=== PATIENT | female | born 1945 | race Asian ===

== ENCOUNTER 2016-06-13 10:37 | Inpatient (IN) | payer OTHER ==
--- NOTE | ~2016-06-13 | CR63 ---
[facility] A Service of [facility] RADIOLOGY TEXT RESULTS PATIENT: SHON HOOKS LOCATION: [facility] : 44 UNIT #: [id number] AGE: [address]: Praful Morel MD SEX: F ORDER DR: [id number] [facility]. [place], [place] [address] [id number] E MR#: [id number] Acc #: [id number] NAME: SHON HOOKS : 1945 SEX: F STUDY DATE/TIME: 06/13/2016 11:14 UNIT: [facility] ROOM: STUDY DESCRIPTION: CR Chest 2 View Attending Physician: Praful Morel M.D. Ordering Physician: Praful Morel M.D. Primary Care Physician: No Primary Care Physician MEDICAL IMAGING REPORT This report is preliminary unless electronic signature is present EXAM Chest x-ray. HISTORY Cough, congestion, headache and sore throat for the past 3-4 days. COMPARISON 02/08/2014 TECHNIQUE Single AP view of the chest was obtained. FINDINGS Emphysematous changes are again noted. No focal infiltrates are seen to suggest pneumonia. No pleural fluid is noted. Heart size is upper limits of normal but unchanged. IMPRESSION Probable emphysema with mild interstitial fibrosis. No new infiltrates are seen since the previous exam. No active disease. Dictated by... Kevin Jean M.D. THIS IS AN ELECTRONICALLY VERIFIED REPORT Kevin Jean M.D. at 06/13/2016 4:29 PM RLF/itzel TD: 06/13/2016 12:17 JOB #: [id number] [facility] A Service [facility] RADIOLOGY TEXT RESULTS PATIENT: SHON HOOKS LOCATION: [facility] : 44 UNIT #: [id number] AGE: [address]: Praful Morel MD SEX: F ORDER DR: MEDICAL IMAGING REPORT Page 1 of 1 COPY
--- NOTE | ~2016-06-13 | OR ---
Unit #: [id number] #: [id number] Patient: SHON HOOKS [id number] [address] [address] [id number] I MR#: [id number] NAME: SHON HOOKS ROOM: 464 Date of Procedure: Admission Date: 06/13/2016 Surgeon: Anshu Castillo M.D. : 1945 Attending Physician: Augustina Olson M.D. Primary Care Physician: Amrita Primary Care Physician PROCEDURE OPERATIVE NOTE PROCEDURE PERFORMED Diagnostic bronchoscopy. INDICATIONS Pneumonia. PREPROCEDURE DIAGNOSIS Pneumonia. POSTPROCEDURE DIAGNOSIS Pneumonia. DETAIL OF PROCEDURE After taking consent from the patient explaining risks and benefits, patient placed in a proper position. Bronchoscope introduced through the oral cavity. Vocal cord appeared to be symmetrically moving toward the midline. Trachea was normal. Chelsie was sharp. We examined right upper, right middle, right lower lobe, left upper lobe, lingula, and left lower lobe. No endobronchial lesions were found. There were thick mucoid secretions in both lungs which were therapeutically suctioned. Then, we did a bronchoalveolar lavage in the right middle lobe area with 60 mL saline in and 20 mL back. Patient tolerated procedure very well. No complications happened. Dictated by... Jozef Ignacio TD: 06/15/2016 10:39 JOB #: [id number] Unit #: [id number] #: [id number] Patient: SHON HOOKS PROCEDURE OPERATIVE NOTE Page 1 of 1 X Anshu Castillo MD PROCEDURE OPERATIVE NOTE
--- NOTE | ~2016-06-13 | EKG ---
PATIENT: SHON HOOKS UNIT #: [id number] Ventricular Rate: 97 BPM Atrial Rate: 97 BPM P-R Interval: 180 ms QRS Duration: 82 ms Q-T Interval: 398 ms QTC Calculation(Bezet): 505 ms P [place]: 56 degrees Calculated R [place]: 73 degrees Calculated T [place]: 80 degrees Diagnosis Line: Sinus rhythm with occasional Premature ventricular Diagnosis Line: complexes Diagnosis Line: Nonspecific ST abnormality Diagnosis Line: Prolonged QT Diagnosis Line: Abnormal ECG Diagnosis Line: When compared with ECG of 10-FEB-2014 06:11, Diagnosis Line: Fusion complexes are no longer Present Diagnosis Line: Premature ventricular complexes are now Present Diagnosis Line: Vent. rate has increased BY 34 BPM Diagnosis Line: QT has lengthened Diagnosis Line: Confirmed by CHIDI CLIFTON MD ([id number]) on 06/13/2016 Diagnosis Line: 10:51:22 PM INTERPRETING MD: ETIENNE DAVIES
--- NOTE | ~2016-06-13 | HP ---
Unit #: [id number] #: [id number] Patient: SHON HOOKS [id number] [address] [place], [place] [address] [id number] I MR#: [id number] NAME: SHON HOOKS ROOM: 37806 Age: 71 Sex: F Admission Date: 06/13/2016 : 1945 Attending Physician: Augustina Olson M.D. Primary Care Physician: [facility] HISTORY AND PHYSICAL HISTORY OF PRESENT ILLNESS This is a 71-year-old female who was born in [facility], and does not speak Ecuadorean, was brought to the ER with a cough. History was obtained with help from patient's family member who speaks Ecuadorean. The patient was also accompanied by her ocvvwkcg-pu-tzn who takes care of her and speaks limited Ecuadorean. As per family, patient was in her usual state of health and was having shortness of breath for the past 10 days which was associated with a cough. As per family, patient was bringing up yellowish sputum, it was also associated with sore throat. The patient was also complaining of mild headache. As patient's condition did not improve, family brought patient to the hospital. The patient goes to [facility]. The patient did not call the primary care physician. No history of chest pain. Family is not sure about weight loss as they do not weigh the patient. Patient's fyxszgyp-iu-ejy states that patient is forgetful and does not eat much. Patient is not very ambulatory as per family. There is no history of rectal bleeding or black stools. There was no history of fever or chills. REVIEW OF SYSTEMS Unable to obtain complete review of systems secondary to language barriers. PAST MEDICAL HISTORY 1. Hypertension. 2. History of bronchial asthma. PAST SURGICAL HISTORY None. HOME MEDICATIONS None, as per family. ALLERGIES No known drug allergies. SOCIAL HISTORY Patient lives with her family. She apparently smoked cigarettes for many years and now for the last 4 years she is chewing tobacco. There is no history of drinking. FAMILY HISTORY Deny any history of significant illness in family. Unit #: [id number] #: [id number] Patient: SHON HOOKS PHYSICAL EXAMINATION VITAL SIGNS: Temperature 98 degrees, pulse 81 per minute, respiratory rate 16 per minute, blood pressure 137/73. GENERAL: The patient is lying comfortably in bed, is not in any obvious acute distress. She is not very verbal. HEENT: No conjunctival congestion. Sclerae nonicteric. NECK: Supple. Trachea central. LUNGS: Decreased breath sounds bilaterally. There are wheezes present. HEART: Regular rate and rhythm, S1, S2. ABDOMEN: Soft. Nontender. Bowel sounds are present. EXTREMITIES: Trace pedal edema. SKIN: Warm and dry. NEUROLOGIC: Patient able to move all extremities. DIAGNOSTIC STUDIES LABORATORY: Creatinine 0.5, sodium 142, potassium 3.1. WBC 9.4, hemoglobin 13.6, platelet count 209. Influenza A screen was positive. Strep screen was negative. D-dimer was 750. IMAGING: CT scan of chest revealed area of volume loss and consolidation in right middle lobe. There are nodules in both lungs which are unchanged from 2014 and considered benign. It was negative for PE. CT scan of head was normal. CARDIOVASCULAR: EKG revealed normal sinus rhythm with PVCs. ASSESSMENT AND PLAN This 71-year-old female presented to [facility] with shortness of air and cough. Details are as per admission history and physical. 1. Right middle lobe pneumonia. Patient will be treated with IV antibiotics. 2. Influenza A. Patient will be treated with some Tamiflu. 3. Acute exacerbation of chronic obstructive pulmonary disease. Patient will be treated with Solu-Medrol. The plan was discussed in detail with patient's family, they showed complete understanding. Dictated by Jozef Mart/ngozi TD: 06/13/2016 21:27 JOB #: [id number] Unit #: [id number] #: [id number] Patient: SHON HOOKS HISTORY AND PHYSICAL Page 1 of 1 X Augustina Olson MD HISTORY AND PHYSICAL
--- NOTE | ~2016-06-13 | CT16 ---
[facility] A Service of [facility] RADIOLOGY TEXT RESULTS PATIENT: SHON HOOKS LOCATION: [facility] : 44 UNIT #: [id number] AGE: [address]: Praful Morel MD SEX: F ORDER DR: [id number] [facility]. [place], [place] [address] [id number] E MR#: [id number] Acc #: [id number] NAME: SHON HOOKS : 1945 SEX: F STUDY DATE/TIME: 06/13/2016 11:41 UNIT: [facility] ROOM: STUDY DESCRIPTION: CT Angio Chest for PE Attending Physician: Praful Morel M.D. Ordering Physician: Praful Morel M.D. Primary Care Physician: No Primary Care Physician MEDICAL IMAGING REPORT This report is preliminary unless electronic signature is present EXAM CT angiogram chest for PE INDICATIONS Cough. Elevated D-dimer. TECHNIQUE CT angiography of the chest utilizing 80 mL Isovue-370 IV contrast. Coronal 3-D MIP reconstructions and standard sagittal reconstructions were obtained. The CT exam was performed with one or more of the following radiation dose reduction techniques: automatic exposure control, adjustment of mA and/or kV according to patient size, and iterative reconstruction. COMPARISON None available. FINDINGS No pulmonary embolus. No thoracic aortic aneurysm or dissection. There is moderate atherosclerotic disease within the thoracic aorta. The main pulmonary artery is dilated measuring 3.5 cm. This would suggest a component of pulmonary arterial hypertension. There is area of consolidation and volume loss in the right middle lobe. There is some associated bronchiectasis. There is some patchy nodule densities in the periphery of both lungs including a 0.9 cm pleural-based area in the right lower lobe (image 91). There are a few small noncalcified pulmonary nodules. These measure less than 4 mm. Central airways are patent. No enlarged mediastinal or hilar lymph nodes. [facility] A Service of [facility] RADIOLOGY TEXT RESULTS PATIENT: SHON HOOKS LOCATION: [facility] : 44 UNIT #: [id number] AGE: [address]: Praful Morel MD SEX: F ORDER DR: No acute osseous abnormalities. IMPRESSION 1. Area of volume loss and consolidation in the right middle lobe. Please correlate for evidence of a right middle lobe pneumonia. 2. Nodules in both lungs are unchanged from January 2014 and considered to be benign. 3. Negative for pulmonary embolus. Dictated by... Shan Maldonado M.D. THIS IS AN ELECTRONICALLY VERIFIED REPORT Shan Maldonado M.D. at 06/13/2016 4:34 PM CYRUS/boris TD: 06/13/2016 13:11 JOB #: [id number] MEDICAL IMAGING REPORT Page 1 of 1 COPY
--- NOTE | ~2016-06-13 | CO ---
Unit #: [id number] #: [id number] Patient: SHON HOOKS [id number] [address] [place], [place] [address] [id number] I MR#: [id number] NAME: SHON HOOKS ROOM: 464 Age: 71 Sex: F Admission Date: 06/13/2016 : 1945 Attending Physician: Augustina Olson M.D. Consultation Date: 06/14/2016 CONSULTATION REPORT REASON FOR CONSULTATION Pneumonia and respiratory failure. CHIEF COMPLAINT Shortness of breath. HISTORY OF PRESENT ILLNESS A 71-year-old female presented with the complaint of cough, shortness of breath, and increasing sputum production for two to three days. The symptoms have been getting worse. She was admitted with the complaint of right middle lobe pneumonia, influenza, and acute exacerbation of COPD. I am seeing the patient at bedside. She is complaining of mild shortness of breath. Denies any nausea, vomiting, or diarrhea. REVIEW OF SYSTEMS Positive for pallor. No edema, no cyanosis, no jaundice. The rest is per History of Present Illness. The rest of a 12-point review of systems has been reviewed and is negative. PAST MEDICAL HISTORY 1. Hypertension. 2. Asthma. PAST SURGICAL HISTORY None. HOME MEDICATIONS None. ALLERGIES None. SOCIAL HISTORY Smoked cigarettes for many years but quit 40 years ago. PHYSICAL EXAMINATION VITAL SIGNS: Temperature 98, pulse 87, respirations 12, and blood pressure 130/70. NEUROLOGICAL: Awake, alert, and oriented, with no neurological deficits. HEENT: Pupils equal, round, and reactive to light and accommodation. Extraocular movements are intact. NECK: Supple. No JVD. CHEST: Bilateral air entry, bilateral mild rhonchi. GASTROINTESTINAL: Nontender and soft. Bowel sounds positive. Unit #: [id number] #: [id number] Patient: SHON HOOKS EXTREMITIES: No edema. SKIN: No rashes and no ulcers. LYMPHATICS: No lymphadenopathy. DIAGNOSTIC STUDIES LABORATORY: Reviewed. IMAGING: Reviewed. ASSESSMENT 1. Right middle lobe pneumonia. 2. Abnormal CT chest. 3. Influenza A. 4. Acute exacerbation of chronic obstructive pulmonary disease. PLAN Continue IV steroid, IV antibiotic, bronchodilator, and GI and DVT prophylaxis. Consideration for bronchoscopy. Will discuss with the family. Please see orders for detailed plans. Thank you very much for this consultation. Dictated by... Jozef Ignacio TD: 06/14/2016 17:32 JOB #: [id number] CONSULTATION REPORT Page 1 of 1 X Anshu Castillo MD CONSULTATION REPORT
--- NOTE | ~2016-06-13 | CT71 ---
[facility] A Service of [facility] RADIOLOGY TEXT RESULTS PATIENT: SHON HOOKS LOCATION: [facility] : 43 UNIT #: [id number] AGE: [address]: Praful Morel MD SEX: F ORDER DR: [id number] [facility] [address]. [place], [place] [address] [id number] E MR#: [id number] Acc #: [id number] NAME: SHON HOOKS : 1945 SEX: F STUDY DATE/TIME: 06/13/2016 11:39 UNIT: [facility] ROOM: STUDY DESCRIPTION: CT Head Wo Contrast Attending Physician: Praful Morel M.D. Ordering Physician: Praful Morel M.D. Primary Care Physician: Primary Care Physician No MEDICAL IMAGING REPORT This report is preliminary unless electronic signature is present EXAM CT head INDICATIONS Headache for [address] head without contrast. Coronal and sagittal reconstructions were obtained. This CT exam was performed with one or more of the following radiation dose reduction techniques: automatic exposure control, adjustment of mA and/or kV according to patient size, and iterative reconstruction. COMPARISON CT head dated 02/08/2014. FINDINGS Axial noncontrast images were obtained from the skull base to the vertex. Ventricular size and configuration are normal. There is no evidence of acute infarct or hemorrhage. There are no extra-axial fluid collections. No mass lesion or mass effect is seen. There are no skull fractures. 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 There is some mild mucosal thickening in the paranasal sinuses. IMPRESSION Normal noncontrast head CT. Dictated by... Shan Maldonado M.D. THIS IS AN ELECTRONICALLY VERIFIED REPORT Shan Maldonado M.D. at 06/13/2016 4:30 PM [facility] A Service of [facility] RADIOLOGY TEXT RESULTS PATIENT: SHON HOOKS LOCATION: [facility] : 43 UNIT #: [id number] AGE: [address]: Praful Morel MD SEX: F ORDER DR: Nancy TD: 06/13/2016 13:00 JOB #: [id number] MEDICAL IMAGING REPORT Page 1 of 1 COPY
--- NOTE | ~2016-06-13 | A ---
[facility] Nutrition Therapy DATE: 06/14/16 Patient: LETTYKYM JESSEE Physician: KELSEY Address: [address] Room/Bed: [address] [place] [address], Zip: [place] [address] Admit Date: 06/13/16 Date of : [birth year] Height: 4 5 Weight: 72 32.9 NUTRITIONAL ASSESSMENT: REASON: LOW BMI PT IS 71 Y.O. FEMALE ADMITTED FOR INFLUENZA PMH: HTN, COPD, BRONCHIAL ASTHMA Anthropometrics: 4'5", WT: 72# (33 KG), BMI: 18.0 Labs: GLU: 270, CREAT: 0.5 Meds: SOLU-MEDROL, NACL, PROTONIX I/O & Bowel function: -/490 Skin Integrity: NO KNOWN SKIN ISSUES Estimated Nutrition Needs: INCREASED NUTRIENT NEEDS 2' CURRENT CONDITION, PT UNDERWEIGHT Assessment: CHART REVIEWED AND EVENTS NOTED. PT SEEN FOR LOW BMI. OF NOTE, PT NON-CZECH SPEAKING, PT SPEAKS LATVIAN. RD ATTEMPTED TO COMMUNICATE TO PT VIA PHONE INTERPTRETER BUT INTERPRETOR NOT AVAILABLE AT TIME OF VISIT. PER RN AND CHART, PT CONSUMES ~50-100% OF MEALS. PT WAS EATING LUNCH AT TIME OF VISIT. PER HISTORY, PT HAS REMAINED SMALL. RD TO FOLLOW. Dx: UNDERWEIGHT R/T LIFESTYLE AEB BMI OF 18.0. Intervention: 1. REGULAR DIET Monitoring, Evaluation and Goals: 1. ORAL INTAKE; PROVIDE AND CONSUME ADEQUATE NUTRITION W/NO C/O N/V/D (PO>50%) 2. WEIGHTS; PROMOTE GRADUAL WEIGHT GAIN; PREVENT ANY WEIGHT LOSS 3. LABS; WNL MONITOR: -PO INTAKE/APPETITE -WEIGHTS -LABS Recommendations: 1. ENCOURAGE PO INTAKE [facility] Nutrition Therapy DATE: 06/14/16 Patient: SHON HOOKS Physician: KELSEY Address: [address] Room/Bed: [address] [place] [address], Zip: [place] [address] Admit Date: 06/13/16 Date of : [birth year] Height: 4 5 Weight: 72 32.9 2. IF PO INTAKE <50%, RECOMMEND TO ORDER ENSURE ENLIVE, PUDDING OR MAGIC CUP BID FOR ADDITIONAL PROTEIN AND KCAL RD WILL F/U PER PROTOCOL PT IS MILDLY COMPROMISED Respectfully, TREY DALE MS, RD, LD [employer] [facility] cc: client file
--- NOTE | ~2016-06-13 | DS ---
Unit #: [id number] #: [id number] Patient: SHON HOOKS [id number] [address] [place], [place] [address] [id number] I MR#: [id number] NAME: SHON HOOKS ROOM: 464 Age: 71 Sex: F Admission Date: 06/13/2016 : 1945 Discharge Date: Attending Physician: Augustina Olson M.D. Primary Care Physician: Amrita Primary Care Physician DISCHARGE SUMMARY FINAL DIAGNOSES 1. Right middle lobe pneumonia. 2. Influenza A. 3. Chronic obstructive pulmonary disease exacerbation. SECONDARY DIAGNOSES 1. Hypertension. 2. History of bronchial asthma. CONSULT Dr. Castillo, Pulmonary. IMAGING The patient had a CT angiogram which showed a right middle lobe pneumonia with low probability for pulmonary embolism. HOSPITAL COURSE The patient is a 69-year-old Shaun lady who basically presented with shortness of breath and she was admitted. She had influenza A. She was seen by Pulmonary. She was placed on steroids, bronchodilators and antibiotics for community-acquired pneumonia. She improved clinically and was evaluated and suitable and stable for discharge. She was initially on oxygen and the plan is to wean her off oxygen prior to discharge. The plan is for her to schedule followup with PCP in the next three to five days. She will be discharged home with home health. MEDICATIONS ON DISCHARGE 1. Tylenol 650 mg every six hours. 2. Protonix 40 mg p.o. daily. 3. Prednisone taper. 4. Zithromax 500 mg p.o. daily for seven days. 5. Vantin 200 mg b.i.d. for seven days. 6. We will also put her on a probiotic, Florastor 250 mg p.o. b.i.d. for one month. She will be discharged in stable condition. Should she require oxygen prior to discharge, this will be set up prior to discharge. Time spent coordinating discharge is about 28 minutes. Dictated by... Ferny Patrick M.D. Unit #: [id number] #: [id number] Patient: SHON HOOKS OO/bd TD: 06/17/2016 11:29 JOB #: [id number] DISCHARGE SUMMARY Page 1 of 1 X Ferny Patrick MD DISCHARGE SUMMARY
[2016-06-13 10:14] LABS: ARTERIAL BLD GAS O2 SATURATION 96.6 % (90.0-100.0); ARTERIAL BLOOD GAS CARBOXY HB 0.6 %sat (0.0-9.0); ARTERIAL BLOOD GAS HCO3 31.9 mmol/L; ARTERIAL BLOOD GAS MET HB 0.7 %sat (0.0-2.0); ARTERIAL BLOOD GAS PO2 98.7 mmHg (80.0-100); ARTERIAL BLOOD GAS pH 7.405 (7.350-7.450)
[2016-06-13 10:15] LABS: ARTERIAL BLOOD GAS ALLEN TEST NORMAL; ARTERIAL BLOOD GAS ART SITE LEFT RADIAL; ARTERIAL BLOOD GAS DELIVERY NASAL CANNULA; ARTERIAL BLOOD GAS PCO2 50.9 mmHg (35.0-45.0); ARTERIAL DRAW? YES
[~2016-06-13 10:37] MED LIST: LORTAB 10 MG-3473 ML PO; NO MEDICATIONS; PAIN MEDICATION
[2016-06-13 10:47] LABS: BASOPHIL% 0.5 % (0-2.5); EOSINOPHIL# 0.4 X10e3 (0-0.7); EOSINOPHIL% 4.4 % (0.0-7.0); HEMATOCRIT 42.5 % (35.0-45.0); HEMOGLOBIN 13.6 gm/dL (12.0-16.0); LYMPHOCYTE# 1.6 X10e3 (1.0-3.5); LYMPHOCYTE% 16.8 % (17.0-45.0); MEAN CELL VOLUME 87.6 FL (83-96); MEAN PLATELET VOLUME 7.3 FL (6.5-11.5); MONOCYTE# 0.9 X10e3 (0-1.0); MONOCYTE% 9.6 % (3.0-12.0); NEUTROPHIL# 6.5 X10e3 (1.5-7.1); NEUTROPHIL% 68.7 % (40-75); PLATELET COUNT 209 X10e3 (140-420); RED BLOOD COUNT 4.85 X10e (3.90-5.30); RED CELL DISTRIBUTION WIDTH 13.7 % (11.0-15.5); WHITE BLOOD COUNT 9.4 X10e3 (4.0-10.5)
[2016-06-13 11:10] LABS: ALBUMIN SERUM 4.2 g/dL (3.5-5.0); ALKALINE PHOSPHATASE 78 U/L (32-92); ALT (SGPT) 11 U/L (10-40); AST (SGOT) 26 U/L (10-42); BILIRUBIN, DIRECT 0.1 mg/dL (0.0-0.2); BILIRUBIN,INDIRECT 0.6 mg/dL (0.0-0.9); BILIRUBIN,TOTAL 0.7 mg/dL (0.2-2.0); BLOOD UREA NITROGEN <5 mg/dL (9-23); CALCIUM SERUM 9.1 mg/dL (8.4-10.2); CARBON DIOXIDE 28 mmol/L (22-31); CHLORIDE 101 mmol/L (100-111); CREATININE SERUM 0.5 mg/dL (0.6-1.4); GLOM FILT RATE Estimated 96.7 mL/min (>60); GLUCOSE FASTING 113 mg/dL (70-110); POTASSIUM 3.1 mmol/L (3.5-5.1); PROTEIN TOTAL SERUM 7.8 g/dL (6.0-8.3); SODIUM 142 mmol/L (135-145)
[2016-06-13 11:35] LABS: DIFF IND NO
[2016-06-13 12:41] LABS: POC - CKMB 1.5 ng/mL (0.0-7.9); POC - TROPONIN <0.05 ng/mL (<=0.05)
[2016-06-13 13:00] LABS: INFLUENZA A POS (NEG); INFLUENZA B NEG (NEG)
[2016-06-14 03:16] LABS: HEMATOCRIT 36.2 % (35.0-45.0); MEAN CELL VOLUME 87.2 FL (83-96); MEAN CORPUSCULAR HGB CONC 32.1 g/dL (30-36); MEAN PLATELET VOLUME 7.4 FL (6.5-11.5); RED BLOOD COUNT 4.15 X10e (3.90-5.30); RED CELL DISTRIBUTION WIDTH 13.6 % (11.0-15.5); WHITE BLOOD COUNT 9.3 X10e3 (4.0-10.5)
[2016-06-14 03:23] LABS: HEMOGLOBIN 11.6 gm/dL (12.0-16.0)
[2016-06-14 03:49] LABS: CALCIUM SERUM 8.4 mg/dL (8.4-10.2); CREATININE SERUM 0.5 mg/dL (0.6-1.4); GLOM FILT RATE Estimated 96.7 mL/min (>60); POTASSIUM 3.9 mmol/L (3.5-5.1)
[2016-06-15 04:08] LABS: DIFF IND YES; HEMATOCRIT 31.9 % (35.0-45.0); HEMOGLOBIN 10.3 gm/dL (12.0-16.0); LYMPHOCYTE# 0.7 X10e3 (1.0-3.5); LYMPHOCYTE% 4.3 % (17.0-45.0); MEAN CELL VOLUME 86.6 FL (83-96); MEAN CORPUSCULAR HEMOGLOBIN 27.9 PG (28-34); MEAN CORPUSCULAR HGB CONC 32.2 g/dL (30-36); MEAN PLATELET VOLUME 7.4 FL (6.5-11.5); MONOCYTE# 0.6 X10e3 (0-1.0); MONOCYTE% 3.6 % (3.0-12.0); NEUTROPHIL# 14.3 X10e3 (1.5-7.1); NEUTROPHIL% 92.1 % (40-75); PLATELET COUNT 180 X10e3 (140-420); RED BLOOD COUNT 3.68 X10e (3.90-5.30); RED CELL DISTRIBUTION WIDTH 13.5 % (11.0-15.5); WHITE BLOOD COUNT 15.6 X10e3 (4.0-10.5)
[2016-06-15 04:23] LABS: ALBUMIN SERUM 3.1 g/dL (3.5-5.0); ALKALINE PHOSPHATASE 52 U/L (32-92); ALT (SGPT) 13 U/L (10-40); AST (SGOT) 24 U/L (10-42); BILIRUBIN,TOTAL 0.3 mg/dL (0.2-2.0); BLOOD UREA NITROGEN 5 mg/dL (9-23); CALCIUM SERUM 8.4 mg/dL (8.4-10.2); CARBON DIOXIDE 29 mmol/L (22-31); CHLORIDE 101 mmol/L (100-111); CREATININE SERUM 0.5 mg/dL (0.6-1.4); GLOM FILT RATE Estimated 96.7 mL/min (>60); GLUCOSE FASTING 168 mg/dL (70-110); POTASSIUM 3.4 mmol/L (3.5-5.1); PROTEIN TOTAL SERUM 6.1 g/dL (6.0-8.3); SODIUM 139 mmol/L (135-145)
[2016-06-15 04:28] LABS: PLATELET ESTIMATE DECREASED (NORMAL)
[2016-06-15 04:29] LABS: HYPOCHROMIA SL
[2016-06-15 04:31] LABS: PROCALCITONIN <0.05 NG/ML
[2016-06-15 12:43] LABS: BODY FLUID APPEARANCE TURBID; BODY FLUID SOURCE BRONCHIAL LAVAGE
[2016-06-16 03:49] LABS: HEMATOCRIT 34.4 % (35.0-45.0); HEMOGLOBIN 10.9 gm/dL (12.0-16.0); LYMPHOCYTE# 0.6 X10e3 (1.0-3.5); LYMPHOCYTE% 3.7 % (17.0-45.0); MEAN CORPUSCULAR HEMOGLOBIN 27.5 PG (28-34); MEAN CORPUSCULAR HGB CONC 31.7 g/dL (30-36); MEAN PLATELET VOLUME 7.4 FL (6.5-11.5); MONOCYTE# 0.3 X10e3 (0-1.0); MONOCYTE% 1.7 % (3.0-12.0); NEUTROPHIL# 14.3 X10e3 (1.5-7.1); NEUTROPHIL% 94.6 % (40-75); PLATELET COUNT 200 X10e3 (140-420); RED BLOOD COUNT 3.95 X10e (3.90-5.30); RED CELL DISTRIBUTION WIDTH 13.8 % (11.0-15.5); WHITE BLOOD COUNT 15.1 X10e3 (4.0-10.5)
[2016-06-16 03:50] LABS: DIFF IND NO
[2016-06-16 04:08] LABS: BUN/CREATININE RATIO 17.5; CALCIUM SERUM 8.3 mg/dL (8.4-10.2); CREATININE SERUM 0.4 mg/dL (0.6-1.4); GLOM FILT RATE Estimated 104.1 mL/min (>60)
[2016-06-17 01:52] LABS: HEMOGLOBIN 10.5 gm/dL (12.0-16.0); MEAN CELL VOLUME 86.7 FL (83-96); MEAN CORPUSCULAR HEMOGLOBIN 27.6 PG (28-34); MEAN CORPUSCULAR HGB CONC 31.8 g/dL (30-36); MEAN PLATELET VOLUME 7.3 FL (6.5-11.5); RED BLOOD COUNT 3.81 X10e (3.90-5.30); RED CELL DISTRIBUTION WIDTH 13.8 % (11.0-15.5); WHITE BLOOD COUNT 11.3 X10e3 (4.0-10.5)
[2016-06-17 02:16] LABS: BUN/CREATININE RATIO 17.5; CALCIUM SERUM 8.1 mg/dL (8.4-10.2); CREATININE SERUM 0.4 mg/dL (0.6-1.4); GLOM FILT RATE Estimated 104.1 mL/min (>60); POTASSIUM 3.8 mmol/L (3.5-5.1)
[2016-06-17] MEDS ORDERED: TYL325 PO (11:12)
[2016-06-17] MEDS ORDERED: ZITHROMAX500 MG PO (11:14)
[2016-06-17] MEDS ORDERED: VANTIN200 MG PO (11:14)
[2016-06-17] MEDS ORDERED: PREDNISONE PO (11:15)
[2016-06-17] MEDS ORDERED: PROBIOTIC250 MG PO (11:15)
== END 2016-06-17 12:45 | disposition home health service (06) | DRG 167 ==
LOC: CED 10:37 → CEDOF 17:52 → C4C 23:21
PROVIDERS: Emergency Medicine; Family Medicine; Internal Medicine
PROC: 0B9D8ZX Drainage of Right Middle Lung Lobe, Via Natural or Artificial Opening Endoscopic, Diagnostic (ICD-10-PCS; principal; 2016-06-15 07:45)
DX: J44.0 Chronic obstructive pulmonary disease with (acute) lower respiratory infection (principal); Z68.1 Body mass index [BMI] 19.9 or less, adult; J10.08 Influenza due to other identified influenza virus with other specified pneumonia; J44.1 Chronic obstructive pulmonary disease with (acute) exacerbation; I10 Essential (primary) hypertension; J45.909 Unspecified asthma, uncomplicated; F17.220 Nicotine dependence, chewing tobacco, uncomplicated; R63.6 Underweight
CPT/HCPCS: 36600; 70450; 71020; 71275; 80048; 80053; 80076; 82308; 82553; 82803; 84484; 85025; 85027; 85379; 87040; 87070; 87116; 87205; 87206; 87252; 87254; 87278; 87651; 87804; 88108; 88305; 88312; 89051; 93005; 94640; 94760; 96374; 97161; 97165; 99291; J0171; J0456; J0696; J1650; J2250; J2920; J2930; J3010; Q9967